=== PATIENT | female | born 1945 | race Caucasian/White ===

== ENCOUNTER 2017-09-29 05:44 | Inpatient (IN) | payer OTHER ==
[2017-09-29] VITALS (11 sets, daily range): BP systolic 123–166; BP diastolic 48–93
[~2017-09-29] VITALS: Ht 167.6 cm; Wt 81.6 kg
[2017-09-29] MEDS ORDERED: VANCOMYCIN 1 GM VIAL ONE (10:00)
[2017-09-29] MEDS ORDERED: BACITRACIN 50000 UNITS/VIAL ONE (10:00)
[2017-09-29] MEDS ORDERED: ACETAMINOPHEN 325 MG TABLET PO PRN ×3 (10:30→14:00)
[2017-09-29] MEDS ORDERED: HYDROCODONE/APAP 5/325MG 1 EACH TABLET PO PRN ×2 (10:30→14:00)
[2017-09-29] MEDS ORDERED: MAG HYDROX/AL HYDROX/SIMETH 30 ML UDC PO PRN (10:30)
[2017-09-29] MEDS ORDERED: MAGNESIUM HYDROXIDE 30 ML UDC PO PRN (10:30)
[2017-09-29] MEDS ORDERED: MORPHINE SULFATE INJ 2 MG/ML DISP.SYRIN IV PRN (10:30)
[2017-09-29] MEDS ORDERED: ONDANSETRON HCL/PF 4 MG/2 ML VIAL IVP PRN (10:30)
[2017-09-29] MEDS ORDERED: Z GUARD REMEDY 2 OZ OINT TP PRN (10:30)
[2017-09-29] MEDS ORDERED: HYDROCODONE/APAP 10/325MG 1 EA TABLET PO PRN (10:30)
[2017-09-29] MEDS ORDERED: hydrALAZINE HCL IV 20 MG VIAL IV PRN (10:30)
[2017-09-29] MEDS ORDERED: FENTANYL PF 100MCG/2ML AMPUL ONE ×3 (10:30→12:43)
[2017-09-29] MEDS ORDERED: ZOLPIDEM TARTRATE 5 MG TABLET PO PRN (10:30)
[2017-09-29] MEDS ORDERED: MIDAZOLAM HCL 2 MG/2ML VIAL ONE (10:31)
[2017-09-29] MEDS ORDERED: TRANEXAMIC ACID 3,000 MG in SODIUM CHLORIDE IRRIG SOLUTION 70 ML IR ONE (11:00)
[2017-09-29] MEDS ORDERED: FEE PK DOSING 1 MIN EA MC ONE (11:00)
[2017-09-29] MEDS ORDERED: VANCOMYCIN 1 GM in IV D5W 250 ML IV ONE (11:00)
[2017-09-29] MEDS ORDERED: HYDROMORPHONE 1 MG/1 ML DISP.SYRIN ONE ×2 (12:25→12:36)
[2017-09-29] MEDS ORDERED: KETOROLAC TROMETHAMINE INJ 30 MG/ML VIAL ONE (12:55)
[2017-09-29] MEDS ORDERED: HYDROMORPHONE 1 MG/1 ML DISP.SYRIN IV PRN (14:00)
[2017-09-29] MEDS ORDERED: ONDANSETRON HCL/PF 4 MG/2 ML VIAL IV PRN (14:00)
[2017-09-29] MEDS ORDERED: DOCUSATE SODIUM 250 MG CAPSULE PO PRN (14:00)
[2017-09-29] MEDS ORDERED: SENNOSIDES 8.6 MG TABLET PO PRN (14:00)
[2017-09-29] MEDS ORDERED: BISACODYL SUPP (10 MG) 10 MG/SUPP.RECT SUPP.RECT RC PRN (14:00)
[2017-09-29] MEDS: IV LR 1000 ML 1,000 ML IV PRN ×2 (14:24→23:24)
[2017-09-29] MEDS ORDERED: HYDROMORPHONE INJ 0.5 MG/0.5 ML SYRINGE IV PRN (14:30)
[2017-09-29 15:58] LABS: EOSINOPHILS % (AUTO) 0.1 % (0.0-6.0); HEMATOCRIT 30 % (33-45); LYMPHOCYTES # (AUTO) 0.7 /CMM (0.8-4.8); LYMPHOCYTES % (AUTO) 6.6 % (20.0-44.0); MEAN CORPUSCULAR HEMOGLOBIN 26 PG (26.0-33.0); MEAN CORPUSCULAR HGB CONC 33 g/dl (31.0-36.0); MEAN CORPUSCULAR VOLUME 78 fL (82-100); MONOCYTES # (AUTO) 0.6 /CMM (0.1-1.30); MONOCYTES % (AUTO) 5.8 % (2.0-12.0); NEUTROPHILS # (AUTO) 8.9 /CMM (1.8-8.9); NEUTROPHILS % (AUTO) 87.5 % (43.0-81.0); PLATELET COUNT (AUTO) 237 /CMM (150-450); WHITE BLOOD COUNT (AUTO) 10.1 K/uL (4.3-11.0)
[2017-09-29 16:02] LABS: CALCIUM, SERUM 8.3 mg/dL (8.5-10.1); CREATININE 0.9 mg/dL (0.6-1.3); MAGNESIUM 1.7 mg/dL (1.8-2.4); POTASSIUM 3.9 mmol/L (3.5-5.1)
[2017-09-29] MEDS ORDERED: diphenhydrAMINE HCL 25 MG CAPSULE PO PRN (17:00)
[2017-09-29] MEDS ORDERED: ACETAMINOPHEN W/ CODEINE#3 1 EA TABLET PO PRN (17:00)
[2017-09-29] MEDS ORDERED: DEXTROSE 50%-WATER 50 ML DISP.SYRIN IV PRN (17:00)
[2017-09-29] MEDS: BLOOD SUGAR DIAGNOSTIC 1 EACH STRIP IN SCH ×2 (17:26→21:28)
[2017-09-29] MEDS: INSULIN REGULAR, HUMAN 100 UNIT/ML 3 ML VIAL SQ PRN ×2 (17:27→21:29)
[2017-09-29] MEDS: HYDROCODONE/APAP 5/325MG 1 EACH TABLET PO PRN (18:53)
[2017-09-29] MEDS: PANTOPRAZOLE 40 MG TABLET.DR PO SCH (22:16)
[2017-09-29] MEDS: VANCOMYCIN 1 GM in IV NS 0.9% 250 ML IV SCH (23:24)
[2017-09-30 04:00] VITALS: BP 125/57
[2017-09-30] MEDS: HYDROMORPHONE INJ 0.5 MG/0.5 ML SYRINGE IV PRN ×2 (04:29→12:21)
[2017-09-30 05:00] VITALS: BP 125/57
[2017-09-30 06:46] LABS: BASOPHILS % (AUTO) 0.4 % (0.0-2.0); EOSINOPHILS # (AUTO) 0.1 /CMM (0.0-0.7); EOSINOPHILS % (AUTO) 1.9 % (0.0-6.0); HEMATOCRIT 26 % (33-45); HEMOGLOBIN 8.8 g/dL (11.5-14.8); LYMPHOCYTES # (AUTO) 0.8 /CMM (0.8-4.8); LYMPHOCYTES % (AUTO) 14.2 % (20.0-44.0); MEAN CORPUSCULAR HEMOGLOBIN 26 PG (26.0-33.0); MEAN CORPUSCULAR HGB CONC 34 g/dl (31.0-36.0); MEAN CORPUSCULAR VOLUME 78 fL (82-100); MONOCYTES # (AUTO) 0.6 /CMM (0.1-1.30); MONOCYTES % (AUTO) 10.6 % (2.0-12.0); NEUTROPHILS # (AUTO) 3.9 /CMM (1.8-8.9); NEUTROPHILS % (AUTO) 72.9 % (43.0-81.0); PLATELET COUNT (AUTO) 153 /CMM (150-450); RDW COEFFICIENT OF VARIATION 16.8 (11.5-15.0); RED BLOOD CELL COUNT(AUTO) 3.37 MIL/uL (4.0-5.2); WHITE BLOOD COUNT (AUTO) 5.4 K/uL (4.3-11.0)
[2017-09-30 07:13] LABS: CALCIUM, SERUM 8.4 mg/dL (8.5-10.1); CREATININE 0.9 mg/dL (0.6-1.3); MAGNESIUM 1.9 mg/dL (1.8-2.4); PHOSPHORUS 3.5 mg/dL (2.5-4.9); POTASSIUM 4.3 mmol/L (3.5-5.1)
[2017-09-30] MEDS: BLOOD SUGAR DIAGNOSTIC 1 EACH STRIP IN SCH ×4 (07:30→21:59)
[2017-09-30 08:00] VITALS: BP 123/41
[2017-09-30] MEDS ORDERED: ENOXAPARIN SODIUM 40 MG/0.4 ML DISP.SYRIN SQ SCH (09:00)
[2017-09-30] MEDS: RIVAROXABAN 10 MG TABLET PO SCH (09:11)
[2017-09-30] MEDS: INSULIN REGULAR, HUMAN 100 UNIT/ML 3 ML VIAL SQ PRN ×3 (09:12→22:10)
[2017-09-30] MEDS: VANCOMYCIN 1 GM in IV NS 0.9% 250 ML IV SCH (12:20)
[2017-09-30 13:00] VITALS: BP 125/74
[2017-09-30 16:00] VITALS: BP 124/55
[2017-09-30] MEDS: MORPHINE SULFATE INJ 4 MG/ML DISP.SYRIN IM PRN ×2 (17:05→20:27)
[2017-09-30 21:45] VITALS: BP 117/53
[2017-09-30] MEDS: PANTOPRAZOLE 40 MG TABLET.DR PO SCH (21:59)
[2017-09-30] MEDS: IV LR 1000 ML 1,000 ML IV PRN (22:13)
[2017-10-01] MEDS: BLOOD SUGAR DIAGNOSTIC 1 EACH STRIP IN SCH ×4 (05:43→22:02)
[2017-10-01] MEDS: INSULIN REGULAR, HUMAN 100 UNIT/ML 3 ML VIAL SQ PRN ×4 (05:45→22:10)
[2017-10-01 06:35] LABS: CALCIUM, SERUM 8.3 mg/dL (8.5-10.1); CREATININE 0.8 mg/dL (0.6-1.3); HEMOGLOBIN 8.6 g/dL (11.5-14.8); POTASSIUM 3.9 mmol/L (3.5-5.1)
[2017-10-01] MEDS: HYDROCODONE/APAP 5/325MG 1 EACH TABLET PO PRN ×3 (07:50→23:17)
[2017-10-01 08:00] VITALS: BP 126/92
[2017-10-01] MEDS: RIVAROXABAN 10 MG TABLET PO SCH (08:13)
[2017-10-01] MEDS: VANCOMYCIN 1 GM in IV NS 0.9% 250 ML IV SCH ×4 (11:51→23:16)
[2017-10-01 16:00] VITALS: BP 134/58
[2017-10-01 20:00] VITALS: BP 121/63
[2017-10-01] MEDS: PANTOPRAZOLE 40 MG TABLET.DR PO SCH (22:02)
[2017-10-01] MEDS: ZOLPIDEM TARTRATE 5 MG TABLET PO PRN (22:02)
[2017-10-01] MEDS: IV LR 1000 ML 1,000 ML IV PRN (22:47)
[2017-10-02] MEDS ORDERED: VANCOMYCIN 0.75 GM in IV D5W 250 ML IV SCH ×2
[2017-10-02] MEDS: MORPHINE SULFATE INJ 4 MG/ML DISP.SYRIN IM PRN ×4 (01:04→20:38)
[2017-10-02] MEDS: BLOOD SUGAR DIAGNOSTIC 1 EACH STRIP IN SCH ×4 (06:40→21:20)
[2017-10-02] MEDS: INSULIN REGULAR, HUMAN 100 UNIT/ML 3 ML VIAL SQ PRN ×4 (06:46→21:24)
[2017-10-02 07:14] LABS: CALCIUM, SERUM 8.2 mg/dL (8.5-10.1); CREATININE 0.8 mg/dL (0.6-1.3); POTASSIUM 3.7 mmol/L (3.5-5.1)
[2017-10-02] MEDS: RIVAROXABAN 10 MG TABLET PO SCH (08:47)
[2017-10-02] MEDS: IV LR 1000 ML 1,000 ML IV PRN (09:59)
[2017-10-02] MEDS: VANCOMYCIN 1 GM in IV NS 0.9% 250 ML IV SCH (12:11)
[2017-10-02] MEDS ORDERED: FUROSEMIDE 20 MG/2 ML VIAL IV ONE (13:30)
[2017-10-02] MEDS ORDERED: ALBUTEROL FS 2.5 MG/3 ML VIAL.NEB NEB PRN (13:30)
[2017-10-02 16:00] VITALS: BP 129/60
[2017-10-02 20:00] VITALS: BP 140/68
[2017-10-02] MEDS: PANTOPRAZOLE 40 MG TABLET.DR PO SCH (21:20)
[2017-10-03] MEDS: VANCOMYCIN 1 GM in IV NS 0.9% 250 ML IV SCH ×2 (00:15→12:07)
[2017-10-03] MEDS: ZOLPIDEM TARTRATE 5 MG TABLET PO PRN (01:17)
[2017-10-03 06:52] LABS: BASOPHILS % (AUTO) 0.3 % (0.0-2.0); EOSINOPHILS # (AUTO) 0.3 /CMM (0.0-0.7); EOSINOPHILS % (AUTO) 4.2 % (0.0-6.0); HEMATOCRIT 23 % (33-45); HEMOGLOBIN 7.8 g/dL (11.5-14.8); LYMPHOCYTES # (AUTO) 1.2 /CMM (0.8-4.8); LYMPHOCYTES % (AUTO) 20.4 % (20.0-44.0); MEAN CORPUSCULAR HEMOGLOBIN 27 PG (26.0-33.0); MEAN CORPUSCULAR HGB CONC 34 g/dl (31.0-36.0); MEAN CORPUSCULAR VOLUME 79 fL (82-100); MONOCYTES # (AUTO) 0.6 /CMM (0.1-1.30); MONOCYTES % (AUTO) 9.7 % (2.0-12.0); NEUTROPHILS # (AUTO) 3.9 /CMM (1.8-8.9); NEUTROPHILS % (AUTO) 65.4 % (43.0-81.0); PLATELET COUNT (AUTO) 228 /CMM (150-450); RDW COEFFICIENT OF VARIATION 16.2 (11.5-15.0); RED BLOOD CELL COUNT(AUTO) 2.93 MIL/uL (4.0-5.2)
[2017-10-03 06:55] LABS: CALCIUM, SERUM 8.5 mg/dL (8.5-10.1); CREATININE 0.8 mg/dL (0.6-1.3); MAGNESIUM 1.7 mg/dL (1.8-2.4); POTASSIUM 3.6 mmol/L (3.5-5.1)
[2017-10-03 06:59] LABS: THYROID STIMULATING HORMONE 0.74 uIU/mL (0.358-3.74)
[2017-10-03] MEDS: BLOOD SUGAR DIAGNOSTIC 1 EACH STRIP IN SCH ×4 (07:30→22:10)
[2017-10-03 08:00] VITALS: BP 133/85
[2017-10-03] MEDS: RIVAROXABAN 10 MG TABLET PO SCH (09:01)
[2017-10-03] MEDS: Magnesium 1GM/D5W 100ML PREMIX 100 ML IV SCH ×2 (12:10→13:28)
[2017-10-03] MEDS: INSULIN REGULAR, HUMAN 100 UNIT/ML 3 ML VIAL SQ PRN ×3 (12:59→22:12)
[2017-10-03 16:00] VITALS: BP 132/65
[2017-10-03 20:00] VITALS: BP 125/86
[2017-10-03] MEDS: PANTOPRAZOLE 40 MG TABLET.DR PO SCH (22:10)
[2017-10-04] MEDS: VANCOMYCIN 1 GM in IV NS 0.9% 250 ML IV SCH ×2 (00:33→12:11)
[2017-10-04] MEDS: HYDROCODONE/APAP 5/325MG 1 EACH TABLET PO PRN (00:34)
[2017-10-04] MEDS: ZOLPIDEM TARTRATE 5 MG TABLET PO PRN (00:34)
[2017-10-04] MEDS: BLOOD SUGAR DIAGNOSTIC 1 EACH STRIP IN SCH ×4 (06:53→21:28)
[2017-10-04] MEDS: INSULIN REGULAR, HUMAN 100 UNIT/ML 3 ML VIAL SQ PRN ×4 (06:55→22:02)
[2017-10-04 07:49] LABS: BASOPHILS % (AUTO) 0.4 % (0.0-2.0); EOSINOPHILS # (AUTO) 0.2 /CMM (0.0-0.7); HEMATOCRIT 24 % (33-45); HEMOGLOBIN 8.2 g/dL (11.5-14.8); LYMPHOCYTES # (AUTO) 1.1 /CMM (0.8-4.8); LYMPHOCYTES % (AUTO) 22.7 % (20.0-44.0); MEAN CORPUSCULAR HEMOGLOBIN 26 PG (26.0-33.0); MEAN CORPUSCULAR HGB CONC 34 g/dl (31.0-36.0); MEAN CORPUSCULAR VOLUME 78 fL (82-100); MONOCYTES # (AUTO) 0.4 /CMM (0.1-1.30); MONOCYTES % (AUTO) 8.2 % (2.0-12.0); NEUTROPHILS # (AUTO) 3.1 /CMM (1.8-8.9); NEUTROPHILS % (AUTO) 63.7 % (43.0-81.0); PLATELET COUNT (AUTO) 280 /CMM (150-450); RDW COEFFICIENT OF VARIATION 16.7 (11.5-15.0); RED BLOOD CELL COUNT(AUTO) 3.11 MIL/uL (4.0-5.2); WHITE BLOOD COUNT (AUTO) 4.8 K/uL (4.3-11.0)
[2017-10-04 08:01] LABS: CALCIUM, SERUM 8.9 mg/dL (8.5-10.1); CREATININE 0.8 mg/dL (0.6-1.3); PHOSPHORUS 3.2 mg/dL (2.5-4.9); POTASSIUM 3.8 mmol/L (3.5-5.1)
[2017-10-04] MEDS: RIVAROXABAN 10 MG TABLET PO SCH (09:06)
[2017-10-04 09:12] VITALS: BP 146/73
[2017-10-04] MEDS: MORPHINE SULFATE INJ 4 MG/ML DISP.SYRIN IM PRN (11:18)
[2017-10-04 16:54] VITALS: BP 146/73
[2017-10-04 20:00] VITALS: BP 148/84
[2017-10-04] MEDS: PANTOPRAZOLE 40 MG TABLET.DR PO SCH (21:28)
[2017-10-05] MEDS: VANCOMYCIN 1 GM in IV NS 0.9% 250 ML IV SCH ×2 (00:08→12:32)
[2017-10-05] MEDS: ZOLPIDEM TARTRATE 5 MG TABLET PO PRN (02:16)
[2017-10-05] MEDS: BLOOD SUGAR DIAGNOSTIC 1 EACH STRIP IN SCH ×3 (05:53→17:38)
[2017-10-05] MEDS: INSULIN REGULAR, HUMAN 100 UNIT/ML 3 ML VIAL SQ PRN ×3 (05:57→17:45)
[2017-10-05 06:59] LABS: BASOPHILS % (AUTO) 0.5 % (0.0-2.0); EOSINOPHILS # (AUTO) 0.3 /CMM (0.0-0.7); HEMATOCRIT 25 % (33-45); HEMOGLOBIN 8.4 g/dL (11.5-14.8); LYMPHOCYTES # (AUTO) 1.1 /CMM (0.8-4.8); LYMPHOCYTES % (AUTO) 20.7 % (20.0-44.0); MEAN CORPUSCULAR HEMOGLOBIN 26 PG (26.0-33.0); MEAN CORPUSCULAR HGB CONC 34 g/dl (31.0-36.0); MEAN CORPUSCULAR VOLUME 78 fL (82-100); MONOCYTES # (AUTO) 0.4 /CMM (0.1-1.30); NEUTROPHILS # (AUTO) 3.4 /CMM (1.8-8.9); NEUTROPHILS % (AUTO) 65.8 % (43.0-81.0); PLATELET COUNT (AUTO) 315 /CMM (150-450); WHITE BLOOD COUNT (AUTO) 5.1 K/uL (4.3-11.0)
[2017-10-05 07:26] LABS: CALCIUM, SERUM 8.8 mg/dL (8.5-10.1); CREATININE 0.9 mg/dL (0.6-1.3); MAGNESIUM 1.9 mg/dL (1.8-2.4); PHOSPHORUS 3.5 mg/dL (2.5-4.9)
[2017-10-05 08:00] VITALS: BP 160/83
[2017-10-05] MEDS: RIVAROXABAN 10 MG TABLET PO SCH (09:56)
[2017-10-05] MEDS: MORPHINE SULFATE INJ 4 MG/ML DISP.SYRIN IM PRN (10:29)
[2017-10-05] MEDS: HYDROCODONE/APAP 5/325MG 1 EACH TABLET PO PRN (13:50)
[2017-10-05 16:00] VITALS: BP 139/69
[2017-10-05] MEDS ORDERED: VANCOMYCIN 1 GM in IV NS 0.9% 250 ML IV SCH (18:00)
== END 2017-10-05 18:33 | DRG 465 ==
LOC: DS 05:44 → MEDSG1 05:46 → MED 09-30 22:24
PROVIDERS: ADMIT Specialist; ATTEND Specialist
DX: T84.51XA Infection and inflammatory reaction due to internal right hip prosthesis, initial encounter (principal); E11.9 Type 2 diabetes mellitus without complications; D63.8 Anemia in other chronic diseases classified elsewhere; E66.9 Obesity, unspecified; D50.9 Iron deficiency anemia, unspecified; E78.5 Hyperlipidemia, unspecified; I10 Essential (primary) hypertension; Y83.1 Surgical operation with implant of artificial internal device as the cause of abnormal reaction of the patient, or of later complication, without mention of misadventure at the time of the procedure; I25.10 Atherosclerotic heart disease of native coronary artery without angina pectoris; K21.9 Gastro-esophageal reflux disease without esophagitis; Y92.009 Unspecified place in unspecified non-institutional (private) residence as the place of occurrence of the external cause; Z68.29 Body mass index [BMI] 29.0-29.9, adult; Z88.0 Allergy status to penicillin
CPT/HCPCS: 36415; 71045-TC; 80048-TC; 80202-TC; 82746; 82947-TC; 82962-TC; 83540-TC; 83735-TC; 84100-TC; 84443-TC; 85025-TC; 85027-TC; 86850-TC; 86921-TC; 87070-TC; 87081-TC; 87186-TC; 88300-TC; 88302-TC; 88305-TC; 94799-TC; 97110-TC; 97116-TC; 97530-TC; A4217; A4606; A6209; A6253; A6402; C1713; J0360; J1170; J1815; J1885; J1940; J2250; J2270; J2405; J3010; J3370; J3475; J7042; J7050; J7060; J7120; Z7610

== ENCOUNTER 2018-02-16 05:15 | Inpatient (IN) | payer OTHER ==
[~2018-02-16] VITALS: Ht 162.6 cm; Wt 79.4 kg
[2018-02-16 05:30] VITALS: BP 156/88
[2018-02-16] MEDS ORDERED: oxyCODONE HCL SR 10MG TAB.SR.12H PO ONE (06:08)
[2018-02-16] MEDS ORDERED: CELECOXIB 100 MG CAPSULE PO ONE (06:30)
[2018-02-16] MEDS ORDERED: ACETAMINOPHEN 325 MG TABLET PO ONE (06:30)
--- NOTE | 2018-02-16 07:00 | NUR ---
PT LEFT UNIT FOR R HIP SURGERY. PT A/O X4. NO S/S OF RESPIRATORY DISTRESS NOTED, VS ARE STABLE.
--- NOTE | 2018-02-16 07:05 | NUR ---
MSANNEL NOTES. RECEIVED ENDORSEMENT FROM NIGHT NURSE AND PT SEEN LEAVING GALVIN FOR SURG.
[2018-02-16] MEDS ORDERED: BACITRACIN 50000 UNITS/VIAL ONE (07:24)
--- NOTE | 2018-02-16 07:45 | NUR ---
MSRN NOTES. BLOOD BANK CALLED REQUESTING PACKED CELL ORDERS TO BE PLACED. ORDERS PLACED AND CONFIRMED CORRECT WITH BLOOD BANK.
[2018-02-16] MEDS ORDERED: HYDROMORPHONE INJ 2 MG/ML DISP.SYRIN ONE ×2 (07:50→09:50)
[2018-02-16] MEDS ORDERED: ROCURONIUM BROMIDE 50 MG/5 ML ONE (07:50)
[2018-02-16] MEDS ORDERED: CLINDAMYCIN 900 MG/6 ML VIAL ONE (07:50)
[2018-02-16] MEDS ORDERED: TRANEXAMIC ACID 3,000 MG in SODIUM CHLORIDE IRRIG SOLUTION 70 ML IR ONE (08:00)
[2018-02-16] MEDS ORDERED: ONDANSETRON HCL/PF 4 MG/2 ML VIAL ONE (09:57)
[2018-02-16] MEDS ORDERED: IBUP-1957 PO (10:04)
[2018-02-16] MEDS ORDERED: IBUP-1953 PO (10:06)
[2018-02-16] MEDS ORDERED: TYLENOL 650 MG TABLET PO PRN (11:00)
[2018-02-16] MEDS ORDERED: SENOKOT 8.6 MG TABLET PO PRN (11:00)
[2018-02-16] MEDS ORDERED: DULCOLAX 10 MG/SUPP.RECT RC PRN (11:00)
[2018-02-16] MEDS ORDERED: ZOFRAN 4mg/2ML IV PRN (11:00)
[2018-02-16] MEDS ORDERED: COLACE 250 MG CAPSULE PO PRN (11:00)
[2018-02-16] MEDS ORDERED: HYDROCODONE/APAP 5/325MG 1 EACH TABLET PO PRN ×2 (11:00)
[2018-02-16] MEDS ORDERED: HYDROMORPHONE INJ 2 MG/ML DISP.SYRIN IV PRN (11:30)
--- NOTE | 2018-02-16 11:45 | NUR ---
MSRN NOTES. PT RETURNED FROM [place], PT WITH O2 VIA NC AT 2LPM, PT WITHOUT RESP DISTRESS PAIN OR DISCOMFORT. PT VITALS WNL. CHART REVIEWED AND ORDERS PLACED. PT RESTING WITHOUT CONCERN OR COMPLAINT. [place] NURSE TO INFORM PT FAMILY TO COME UP. WILL CONTINUE POC.
[2018-02-16] MEDS ORDERED: LEVOFLOXACIN 500 MG /D5W 100ML 500 MG in PREMIX 1 EA IV ONE (12:00)
[2018-02-16] MEDS: IV LR 1000 ML 1,000 ML IV PRN (12:17)
[2018-02-16] MEDS: CLINDAMYCIN 600 MG in IV D5W 50 ML IV SCH ×2 (14:49→21:03)
[2018-02-16 16:00] VITALS: BP 133/69
[2018-02-16] MEDS ORDERED: ONDANSETRON HCL/PF 4 MG/2 ML VIAL IVP PRN (18:00)
[2018-02-16] MEDS ORDERED: MAG HYDROX/AL HYDROX/SIMETH 30 ML UDC PO PRN (18:00)
[2018-02-16] MEDS ORDERED: ACETAMINOPHEN 325 MG TABLET PO PRN (18:00)
[2018-02-16] MEDS ORDERED: Z GUARD REMEDY 2 OZ OINT TP PRN (18:00)
[2018-02-16] MEDS ORDERED: MORPHINE SULFATE INJ 2 MG/ML DISP.SYRIN IM PRN (18:00)
[2018-02-16] MEDS ORDERED: diphenhydrAMINE HCL 25 MG CAPSULE PO PRN (18:00)
[2018-02-16] MEDS ORDERED: MAGNESIUM HYDROXIDE 30 ML UDC PO PRN ×2 (18:00→18:30)
--- NOTE | 2018-02-16 18:23 | NUR ---
MSRN CLOSING NOTES. PT A&0X3 TOLERATING ROOM AIR WITH DISTRESS. PT REPORTING MINOR/MODERATE PAIN BUT DECLINES ANALGESIA. PT WITH IVC AT L WRIST INTACT AND OPERATIONAL. PT WITH SCD'S INSITU. TRAPEZE ORDERED WITH PT. PT BED IN LOWEST LOCKED POSITION WITH HANDRAILSX2, AND CALL GRESHAM WITHIN REACH. ALL DAY NURSE DUTIES ATTENDED TO AND PT SI WITHOUT CONCERN OR COMPLAINT AT THIS TIME. WILL ENDORSE TO NIGHT NURSE AT BEDSIDE FOR BOBBY.
--- NOTE | 2018-02-16 19:27 | NUR ---
MS/RN OPENING NOTES PT RECEIVED A/OX3, HOB ELEVATED. ON ROOM AIR, BREATHING EVEN AND UNLABORED. DENIES SOB, C/O 12/09 RIGHT HIP PAIN BUT REFUSING PAIN MEDICATION AT THIS TIME. EDUCATED PT REGARDING PAIN MANAGEMENT AND VERBALIZED UNDERSTANDING. STILL REFUSING AT THIS TIME. IV TO LEFT WRIST PATENT AND INTACT RUNNING IVF ORDERED. ALLISON IN PLACE AND DRAINING TO GRAVITY. RIGHT HIP DRESSING C/D/I WITH ICE PACK. ABDUCTOR IN PLACE. BED IN LOW/LOCKED POSITION WITH CALL LIGHT IN REACH. SIDE RAILS UPX2. WILL CONTINUE TO MONITOR
[2018-02-16 20:00] VITALS: BP 107/61
[2018-02-16] MEDS: PANTOPRAZOLE 40 MG TABLET.DR PO SCH (21:03)
--- NOTE | 2018-02-16 21:16 | NUR ---
MS/RN NOTES PT REFUSED SCHEDULED PROTONIX. EDUCATION PROVIDED REGARDING RISKS/BENEFITS, PT STILL REFUSING. RETURNED MED IN [facility]
[2018-02-16] MEDS ORDERED: AMBIEN 5 MG TABLET PO PRN (22:00)
[2018-02-17] MEDS: IV LR 1000 ML 1,000 ML IV PRN ×2 (01:07→16:33)
[2018-02-17] MEDS: CLINDAMYCIN 600 MG in IV D5W 50 ML IV SCH (02:03)
[2018-02-17 06:34] LABS: BASOPHILS % (AUTO) 0.1 % (0.0-2.0); EOSINOPHILS % (AUTO) 0.4 % (0.0-6.0); HEMATOCRIT 30 % (33-45); HEMOGLOBIN 9.9 g/dL (11.5-14.8); LYMPHOCYTES # (AUTO) 1.3 /CMM (0.8-4.8); LYMPHOCYTES % (AUTO) 20.3 % (20.0-44.0); MEAN CORPUSCULAR HEMOGLOBIN 28 PG (26.0-33.0); MEAN CORPUSCULAR HGB CONC 33 g/dl (31.0-36.0); MEAN CORPUSCULAR VOLUME 84 fL (82-100); MONOCYTES # (AUTO) 0.6 /CMM (0.1-1.30); MONOCYTES % (AUTO) 9.4 % (2.0-12.0); NEUTROPHILS # (AUTO) 4.5 /CMM (1.8-8.9); NEUTROPHILS % (AUTO) 69.8 % (43.0-81.0); PLATELET COUNT (AUTO) 194 /CMM (150-450); RDW COEFFICIENT OF VARIATION 15.9 (11.5-15.0); RED BLOOD CELL COUNT(AUTO) 3.55 MIL/uL (4.0-5.2); WHITE BLOOD COUNT (AUTO) 6.5 K/uL (4.3-11.0)
[2018-02-17 06:41] LABS: CALCIUM, SERUM 8.4 mg/dL (8.5-10.1); CARBON DIOXIDE 27 mmol/L (21-32); CHLORIDE 104 mmol/L (98-107); GLUCOSE 163 mg/dL (74-106); MAGNESIUM 1.8 mg/dL (1.8-2.4); PHOSPHORUS 3.5 mg/dL (2.5-4.9); POTASSIUM 4.1 mmol/L (3.5-5.1); SODIUM SERUM 138 mmol/L (136-145); UREA NITROGEN, BLOOD 19 mg/dL (7-18)
[2018-02-17 06:47] LABS: CHOLESTEROL 218 mg/dL (<200); HDL CHOLESTEROL 49 mg/dL (40-60); LDL 141 mg/dL (0-99); TRIGLYCERIDES 139 mg/dL (30-150)
--- NOTE | 2018-02-17 07:29 | NUR ---
MSRN OPENING NOTES. PT A&0X3 TOLERATING ROOM AIR WITHOUT DISTRESS. PT REPORTS CURRENT PAIN MANAGEMENT ADEQUATE. PT WITH IVC AT L WRIST INTACT AND OPERATIONAL. PT DRESSING INTACT AND NAD. PT WITH SCD'S INSITU. PT REPOSITIONED, Z GUARD APPLIED TO BACK OF LEGS AND BUTTOCKS. PT BED IN LOWEST LOCKED POSITION WITH HANDRAILSX2, AND CALL GRESHAM WITHIN REACH. PT BRIEFED ON TODAY'S POC AND IS WITHOUT CONCERN OR COMPLAINT AT THIS TIME.
--- NOTE | 2018-02-17 07:33 | NUR ---
MS/RN CLOSING NOTES PT AWAKE, RESTING COMFORTABLY IN BED. REMAINS ON ROOM AIR, BREATHING EVEN AND UNLABORED. DENIES SOB, PAIN AT A TOLERATED LEVEL AT THIS TIME. DOES NOT WANT PAIN MEDICATION. IV TO LEFT WRIST PATENT AND INTACT RUNNING IVF ORDERED. RIGHT HIP DRESSING C/D/I WITH ICE PACK. TURNED/REPOSITIONED Q2H, AND TOLERATED. ENCOURAGED PT TO USE INCENTIVE SPIROMETER WHILE AWAKE THROUGHOUT SHIFT. ALLISON IN PLACE AND DRAINING TO GRAVITY. PER PATIENT, POSITIVE FLATUS, NO BM. NO SIGNIFICANT CHANGES OVERNIGHT. ALL NEEDS MET. BED REMAINS IN LOW/LOCKED POSITION WITH CALL LIGHT IN REACH. SIDE RAILS UPX3. ENDORSED TO DAY SHIFT ANNEL BOBBY. Addendum: 02/17/18 at 0736 by VIJI CORONADO RN AWAITING PT MIRNA AND CHRISTOPHER
[2018-02-17] MEDS: RIVAROXABAN 10 MG TABLET PO SCH (08:53)
[2018-02-17] MEDS: DOCUSATE SODIUM 100 MG CAPSULE PO SCH ×2 (08:53→16:23)
[2018-02-17] MEDS: HYDROCODONE/APAP 5/325MG 1 EACH TABLET PO PRN ×2 (09:20→22:34)
[2018-02-17 16:00] VITALS: BP 130/61
--- NOTE | 2018-02-17 17:00 | NUR ---
MSRN NOTES. ALLISON D/C. BEDPAN AND CALL GRESHAM WITHIN REACH.
--- NOTE | 2018-02-17 18:25 | NUR ---
MSRN CLOSING NOTES. PT TOLERATING ROOM AIR WITHOUT DISTRESS, REPORTS MINOR PAIN AND DECLINED ANALGESIA MUTLTIPLE TIMES. PT WITH IVC AT L WRIST INTACT AND OPERATIONAL. PT DRESSING INTACT AND NAD. PT REFUSED SCD'S. PT REPOSITIONED Q2HR OR SOONER, Z GUARD TO LEGS AND BUTTOCKS. PT BED IN LOWEST LOCKED POSITION WITH HANDRAILSX2, AND CALL GRESHAM WITHIN REACH. ALL DAY NURSE DUTIES ATTENDED TO AND PT IS WITHOUT CONCERN OR COMPLAINT, WILL ENDORSE TO NIGHT NURSE AT BEDSIDE FOR BOBBY.
--- NOTE | 2018-02-17 19:40 | NUR ---
MS RN OPENING NOTE RECEIVE PATIENT AWAKE IN BED, A/O X3, STABLE NO FACIAL GRIMACING NOTED FOR PAIN. NO SOB OR DISTRESS NOTED, CALL LIGHT WITHIN REACH. SAFETY MEASURES IMPLEMENTED. WILL CONTINUE TO MONITOR THROUGHOUT SHIFT.
[2018-02-17 20:00] VITALS: BP 113/59
[2018-02-17] MEDS: PANTOPRAZOLE 40 MG TABLET.DR PO SCH (22:31)
[2018-02-18] MEDS: IV LR 1000 ML 1,000 ML IV PRN ×3 (02:16→21:38)
[2018-02-18 06:11] LABS: BASOPHILS % (AUTO) 0.4 % (0.0-2.0); EOSINOPHILS % (AUTO) 2.4 % (0.0-6.0); HEMATOCRIT 28 % (33-45); HEMOGLOBIN 9.4 g/dL (11.5-14.8); LYMPHOCYTES # (AUTO) 1.2 /CMM (0.8-4.8); LYMPHOCYTES % (AUTO) 21.4 % (20.0-44.0); MEAN CORPUSCULAR HEMOGLOBIN 28 PG (26.0-33.0); MEAN CORPUSCULAR HGB CONC 33 g/dl (31.0-36.0); MEAN CORPUSCULAR VOLUME 83 fL (82-100); MONOCYTES # (AUTO) 0.5 /CMM (0.1-1.30); MONOCYTES % (AUTO) 9.3 % (2.0-12.0); NEUTROPHILS # (AUTO) 3.7 /CMM (1.8-8.9); NEUTROPHILS % (AUTO) 66.5 % (43.0-81.0); PLATELET COUNT (AUTO) 166 /CMM (150-450); RED BLOOD CELL COUNT(AUTO) 3.41 MIL/uL (4.0-5.2); WHITE BLOOD COUNT (AUTO) 5.6 K/uL (4.3-11.0)
--- NOTE | 2018-02-18 06:19 | NUR ---
MS RN CLOSING NOTES PT COMFORTABLY ASLEEP AND EASILY AWAKEN, A/O X 3, ASSISTED REPOSITION EVERY 2 HOURS, TOLERATING ROOM AIR 98% STABLE CONDITION. RESPIRATION EVEN AND UNLABORED. KEPT CLEAN AND DRY AND COMFORTABLE, ALL NURSING CARE RENDERED. NEEDS ATTENDED AND ANTICIPATED, GOOD SKIN CARE PROVIDED. ON LOW BED AT ALL TIMES TO ENSURE SAFETY. SAFE HAZARD FREE ENVIRONMENT PROVIDED. NO COMPLAINS OF PAIN. CALL LIGHT WITHIN EASY TO REACH. WILL ENDORSE NEXT SHIFT CONTINUITY OF CARE. Addendum: 02/18/18 at 0639 by RISA WYNN RN R HIP DRESSING INTACT C/D/I NO S/S BLEEDING
[2018-02-18 06:44] LABS: CALCIUM, SERUM 8.2 mg/dL (8.5-10.1); CARBON DIOXIDE 29 mmol/L (21-32); CHLORIDE 104 mmol/L (98-107); CREATININE 0.8 mg/dL (0.6-1.3); GLUCOSE 163 mg/dL (74-106); MAGNESIUM 1.7 mg/dL (1.8-2.4); PHOSPHORUS 2.8 mg/dL (2.5-4.9); POTASSIUM 3.6 mmol/L (3.5-5.1); SODIUM SERUM 139 mmol/L (136-145); UREA NITROGEN, BLOOD 15 mg/dL (7-18)
--- NOTE | 2018-02-18 07:41 | NUR ---
MS RN OPENING NOTES RECEIVED PT FROM NIGHTSHIFT NURSE IN STABLE CONDITION. PT IS A/O X3. NO SOB OR ACUTE SIGNS OF DISTRESS NOTED. BREATHING IS EVEN AND UNLABORED. PT ON RA AND SATING WELL. SHE DENIES ANY PAIN AT THIS TIME. SURGICAL DRESSING TO RIGHT HIP NOTED TO BE CLEAN, DRY, AND INTACT. IV TO LEFT WRIST NOTED TO BE PATENT AND INTACT. NO REDNESS OR SIGNS OF INFILTRATION NOTED. PT TOLERATING LR INFUSION WELL. BED IN LOW LOCKED POSITION, SIDE RAILS UP X2, CALL LIGHT WITHIN REACH. WILL CONTINUE TO MONITOR
[2018-02-18 08:00] VITALS: BP 117/59
[2018-02-18] MEDS: DOCUSATE SODIUM 100 MG CAPSULE PO SCH ×2 (08:34→16:52)
[2018-02-18] MEDS ORDERED: MAGNESIUM OXIDE 400 MG TABLET PO ONE (10:00)
[2018-02-18 16:00] VITALS: BP 135/70
[2018-02-18] MEDS: RIVAROXABAN 10 MG TABLET PO SCH (16:52)
--- NOTE | 2018-02-18 18:47 | NUR ---
MS RN CLOSING NOTES PT REMAINS IN STABLE CONDITION. ALL NEEDS MET DURING SHIFT AND ORDERS CARRIED OUT ACCORDINGLY. ALL DUE MEDS GIVEN. WOUND AND SKIN CARE PROVIDED. DRESSING CHANGED RENDERED BY . IV REMAINS PATENT AND INTACT. PT PREFERS TO HAVE FLUID OFF AT THIS TIME. SHE CONTINUES TO DENY PAIN. SAFETY MEASURES REMAIN IN PLACE. WILL ENDORSE TO NIGHTSHIFT NURSE FOR BOBBY
--- NOTE | 2018-02-18 19:00 | NUR ---
MS RN OPENING NOTE RECEIVE PATIENT AWAKE IN BED, A/O X3, TOLERATING ROOM AIR 98% NO FACIAL GRIMACING NOTED FOR PAIN. NO SOB OR DISTRESS NOTED, CALL LIGHT WITHIN REACH. SAFETY MEASURES IMPLEMENTED. WILL CONTINUE TO MONITOR THROUGHOUT SHIFT.
[2018-02-18 20:00] VITALS: BP 109/85
[2018-02-18] MEDS: PANTOPRAZOLE 40 MG TABLET.DR PO SCH (21:38)
--- NOTE | 2018-02-19 06:18 | NUR ---
MS RN CLOSING NOTES PT COMFORTABLY ASLEEP AND EASILY AWAKEN, A/O X 3, TOLERATING ROOM AIR 100% STABLE CONDITION. RESPIRATION EVEN AND UNLABORED. KEPT CLEAN AND DRY AND COMFORTABLE, ALL NURSING CARE RENDERED. NEEDS ATTENDED AND ANTICIPATED, GOOD SKIN CARE PROVIDED. ASSISTED REPOSITION EVERY 2 HOURS, ON LOW BED AT ALL TIMES TO ENSURE SAFETY. SAFE HAZARD FREE ENVIRONMENT PROVIDED. NO COMPLAINS OF PAIN. CALL LIGHT WITHIN EASY TO REACH. WILL ENDORSE NEXT SHIFT CONTINUITY OF CARE.
[2018-02-19 06:47] LABS: BASOPHILS % (AUTO) 0.4 % (0.0-2.0); EOSINOPHILS % (AUTO) 2.9 % (0.0-6.0); HEMATOCRIT 28 % (33-45); HEMOGLOBIN 9.1 g/dL (11.5-14.8); LYMPHOCYTES # (AUTO) 1.3 /CMM (0.8-4.8); LYMPHOCYTES % (AUTO) 21.1 % (20.0-44.0); MEAN CORPUSCULAR HEMOGLOBIN 28 PG (26.0-33.0); MEAN CORPUSCULAR HGB CONC 33 g/dl (31.0-36.0); MEAN CORPUSCULAR VOLUME 83 fL (82-100); MONOCYTES # (AUTO) 0.5 /CMM (0.1-1.30); MONOCYTES % (AUTO) 8.8 % (2.0-12.0); NEUTROPHILS # (AUTO) 4.1 /CMM (1.8-8.9); NEUTROPHILS % (AUTO) 66.8 % (43.0-81.0); PLATELET COUNT (AUTO) 176 /CMM (150-450); RDW COEFFICIENT OF VARIATION 15.6 (11.5-15.0); WHITE BLOOD COUNT (AUTO) 6.1 K/uL (4.3-11.0)
[2018-02-19 07:14] LABS: ALANINE AMINOTRANSFERASE 16 U/L (12-78); ALBUMIN 2.6 g/dL (3.4-5.0); ALKALINE PHOSPHATASE 54 U/L (46-116); ASPARTATE AMINOTRANSFERASE 16 U/L (15-37); BILIRUBIN,TOTAL 0.4 mg/dL (0.2-1.0); CALCIUM, SERUM 8.3 mg/dL (8.5-10.1); CARBON DIOXIDE 28 mmol/L (21-32); CHLORIDE 101 mmol/L (98-107); CREATININE 0.9 mg/dL (0.6-1.3); GLUCOSE 194 mg/dL (74-106); MAGNESIUM 1.6 mg/dL (1.8-2.4); PHOSPHORUS 2.8 mg/dL (2.5-4.9); POTASSIUM 3.4 mmol/L (3.5-5.1); SODIUM SERUM 137 mmol/L (136-145); TOTAL PROTEIN, SERUM 6.5 g/dL (6.4-8.2); UREA NITROGEN, BLOOD 13 mg/dL (7-18)
--- NOTE | 2018-02-19 07:15 | NUR ---
RN NOTES PT IS LAYING DOWN IN BED, SLEEPING COMFORTABLY. PT ON RA, RESPIRATIONS ARE EVEN AND UNLABORED. IV ON L WRIST INTACT AND RUNNING LR @ 100ML/HR. NO SIGNS OF DISTRESS NOTED. SAFETY MEASURES ARE IN PLACE, CALL LIGHT IS IN REACH. WILL CONTINUE TO MONITOR.
--- NOTE | 2018-02-19 07:52 | NUR ---
RN NOTES REPORT WAS GIVEN TO ARNEL FOR BOBBY.
[2018-02-19 08:00] VITALS: BP 142/79
[2018-02-19] MEDS: DOCUSATE SODIUM 100 MG CAPSULE PO SCH ×2 (09:37→17:58)
[2018-02-19] MEDS ORDERED: MAGNESIUM OXIDE 400 MG TABLET PO ONE (10:00)
[2018-02-19] MEDS ORDERED: POTASSIUM CHLORIDE 20 MEQ TAB.PRT.SR PO SCH (10:00)
[2018-02-19] MEDS: RIVAROXABAN 10 MG TABLET PO SCH (18:02)
--- NOTE | 2018-02-19 18:42 | NUR ---
RN NOTE CLOSING: PT IS AWAKE A/O X 3, TOLERATING ROOM AIR 100%. STABLE CONDITION. RESPIRATION EVEN AND UNLABORED. KEPT CLEAN AND DRY AND COMFORTABLE. BED AT LOWEST POSITION AT ALL TIMES TO ENSURE SAFETY. SAFE HAZARD FREE ENVIRONMENT PROVIDED. NO COMPLAINS OF PAIN. CALL LIGHT WITHIN EASY TO REACH. WILL ENDORSE NEXT SHIFT CONTINUITY OF CARE.
--- NOTE | 2018-02-19 18:53 | NUR ---
MS RN OPENING NOTE RECEIVE PATIENT AWAKE IN BED, A/O X3, TOLERATING ROOM AIR 99% NO C/O OF PAIN. NO SOB OR DISTRESS NOTED, CALL LIGHT WITHIN REACH. SAFETY MEASURES IMPLEMENTED. WILL CONTINUE TO MONITOR THROUGHOUT SHIFT.
--- NOTE | 2018-02-19 19:20 | NUR ---
MS RN NOTES REPORT GIVEN TO OTHER RN NURSE CHANGE OF PATIENT
[2018-02-19 20:00] VITALS: BP 132/75
--- NOTE | 2018-02-19 20:00 | NUR ---
MS/RN OPENING NOTES PATIENT IN BED, ABLE TO VERBALIZE NEEDS, REPORTED ABLE TO EAT AND DRINK FLUIDS AND REPORTED AND REQUEST NOT TO HAVE IVF AT THIS TIME. SOME NOTED REDNESS AND WILL REMOVE IV SITE. WILL MONITOR, OBSERVE ABLE TO WALK WITH WALK AND ASK FOR ASSISTANCE, CALM AND COOPERTAIVE TO CARE. SKIN INTACT, WILL MONITOR, BED IN LOCK POSITION, CALL LIGHTS WITHIN REACH.
[2018-02-19] MEDS: PANTOPRAZOLE 40 MG TABLET.DR PO SCH (21:34)
[2018-02-19] MEDS: HYDROCODONE/APAP 5/325MG 1 EACH TABLET PO PRN (23:00)
[2018-02-20] MEDS ORDERED: CEFAZOLIN 0 GM ONE (00:30)
--- NOTE | 2018-02-20 00:30 | NUR ---
MS/RN NOTES CLARRIFICATION OBTAINED WITH CHARGE NURSE FOR ANTIBIOTIC, FOR ANOTHER PATIENT
--- NOTE | 2018-02-20 00:31 | NUR ---
MS/RN NOTES NO ANTIBIOTIC GIVEN, ENTRY ERROR FOR REVERSAL BY ANOTHER RN
--- NOTE | 2018-02-20 06:42 | NUR ---
312-1 MS/RN NOTES PATIENT ABLE TO SLEEP DURING THE NIGHTS, RESTING COMFORTABLY IN BED, PAIN MANAGMENT MONITORING,PROVIDED COOLING MEASURES TO RELIEVE PAIN, PROVIDE FLUIDS, ALERT, ORIENTEDX3, ABLE TO DO SELF CARE WITH SUPERVISION. CALL LIGHTS WITHIN REACH, BED IN LOCK POSITION, WILL MONITOR AND ENDORSE TO AM RN FOR BOBBY.
--- NOTE | 2018-02-20 07:53 | NUR ---
MS RN OPENING NOTE RECEIVED PATIENT IN BED. ALERT ORIENTED X 4, ON ROOM AIR. TOLERATING WELL. IN NO APPARENT DISTRESS OR DISCOMFORT AT THIS TIME. RESPIRATIONS EVEN AND UNLABORED. PATIENT IS ABLE TO VERBALIZE NEEDS FULLY. ABLE TO AMBULATE WITH ASSISTIVE DEVICE. PATIENT IS CONTINENT . KEPT CLEAN AND COMFORTABLE. PAIN CONTROLLED. SAFETY MEASURES IN PLACE, BED IN LOW LOCKED POSITION, SIDE RAILS UP X2, CALL LIGHT WITHIN EASY REACH. WILL CONTINUE TO MONITOR.
[2018-02-20 08:00] VITALS: BP 126/71
[2018-02-20] MEDS: HYDROCODONE/APAP 5/325MG 1 EACH TABLET PO PRN ×2 (08:36→21:56)
[2018-02-20] MEDS: DOCUSATE SODIUM 100 MG CAPSULE PO SCH ×2 (08:36→16:00)
[2018-02-20 15:39] VITALS: BP 118/64
[2018-02-20] MEDS: RIVAROXABAN 10 MG TABLET PO SCH (16:01)
--- NOTE | 2018-02-20 18:14 | NUR ---
MS RN CLOSING NOTE PATIENT IN BED. SLEEPING, EASILY AROUSED WITH VERBAL STIMULI, ORIENTED X4. ON ROOM AIR. TOLERATING WELL. IN NO APPARENT DISTRESS OR DISCOMFORT AT THIS TIME. RESPIRATIONS EVEN AND UNLABORED. PATIENT IS ABLE TO VERBALIZE NEEDS FULLY. ABLE TO AMBULATE WITH ASSISTIVE DEVICE. PATIENT IS CONTINENT. LEFT WRIST IVC 22G. PATENT AND INTACT, FLUIDS RUNNING AT 100 ML/HR. SURGICAL DRESSING CLEAN AND INTACT. KEPT CLEAN AND COMFORTABLE. PAIN CONTROLLED. SAFETY MEASURES IN PLACE, BED IN LOW LOCKED POSITION, SIDE RAILS UP X2, CALL LIGHT WITHIN EASY REACH. WILL ENDORSE TO PM NURSE FOR BOBBY.
--- NOTE | 2018-02-20 19:45 | NUR ---
MS/RN OPENING NOTES PATIENT IN BED, ALERT, ORIENTED X3, ABLE TO VERBALIZE NEEDS AT ALL TIMES, ASSISTED TO BATHROOM WITH WALKER, PARTICIPATED WITH CARE, RESPIRATIONS EVEN AND UNLABORED, NO PAIN REPORTED AND OBSERVED, IV HYDRATION STARTED, PATIENT REQUEST TO GO BACK TO BED AFTER HAD SNACK PROVIDED BY CHRISTIE. CALL LIGHTS WITHIN REACH, BELONGINGS WITHIN REACH. AND WILL MONITOR.., IV ON LEFT HAND W/ NO S/S OF INFILTRATION OR REDNESS.
[2018-02-20 20:00] VITALS: BP 133/71
[2018-02-20] MEDS: PANTOPRAZOLE 40 MG TABLET.DR PO SCH (21:56)
--- NOTE | 2018-02-20 21:56 | NUR ---
ms/rn notes patient reported pain, and rerquested pain medication
--- NOTE | 2018-02-21 00:29 | NUR ---
MS/RN NOTES PATIENT REQUESTED TO HAVE IV FLUIDS HOLD AND TO RESUME IN THE MORNING. PATIETN ABLE TO DRINK FLUIDS AND WOULD LIKE TO SLEEP.
[2018-02-21] MEDS: HYDROCODONE/APAP 5/325MG 1 EACH TABLET PO PRN ×3 (01:50→17:42)
[2018-02-21 06:23] LABS: BASOPHILS % (AUTO) 0.5 % (0.0-2.0); EOSINOPHILS % (AUTO) 5.3 % (0.0-6.0); HEMATOCRIT 27 % (33-45); HEMOGLOBIN 8.9 g/dL (11.5-14.8); LYMPHOCYTES # (AUTO) 1.7 /CMM (0.8-4.8); LYMPHOCYTES % (AUTO) 30.5 % (20.0-44.0); MEAN CORPUSCULAR HEMOGLOBIN 28 PG (26.0-33.0); MEAN CORPUSCULAR HGB CONC 33 g/dl (31.0-36.0); MEAN CORPUSCULAR VOLUME 84 fL (82-100); MONOCYTES # (AUTO) 0.5 /CMM (0.1-1.30); MONOCYTES % (AUTO) 8.6 % (2.0-12.0); NEUTROPHILS # (AUTO) 3.2 /CMM (1.8-8.9); NEUTROPHILS % (AUTO) 55.1 % (43.0-81.0); PLATELET COUNT (AUTO) 241 /CMM (150-450); RDW COEFFICIENT OF VARIATION 16.1 (11.5-15.0); RED BLOOD CELL COUNT(AUTO) 3.21 MIL/uL (4.0-5.2); WHITE BLOOD COUNT (AUTO) 5.7 K/uL (4.3-11.0)
[2018-02-21 06:55] LABS: CALCIUM, SERUM 8.5 mg/dL (8.5-10.1); CARBON DIOXIDE 31 mmol/L (21-32); CHLORIDE 103 mmol/L (98-107); GLUCOSE 181 mg/dL (74-106); MAGNESIUM 1.8 mg/dL (1.8-2.4); PHOSPHORUS 3.9 mg/dL (2.5-4.9); SODIUM SERUM 142 mmol/L (136-145); UREA NITROGEN, BLOOD 22 mg/dL (7-18)
--- NOTE | 2018-02-21 07:07 | NUR ---
312-1 MS/RN NOTES PATIENT ABLE TO SLEEP DURING THE NIGHT, PAIN MONITOR, ON PAIN MANAGEMENT. RESPIRATIONS EVEN AND UNLABORED CALL LIGHTS WITHIN REACH,BED IN LOCK POSITION WILL ENDORSE TO AM RN FOR BOBBY.ALERT, ORIENTEDX3.
--- NOTE | 2018-02-21 07:15 | NUR ---
MS RN OPENING NOTE RECEIVED PATIENT IN BED. ALERT ORIENTED X 4, ON ROOM AIR. TOLERATING WELL. IN NO APPARENT DISTRESS OR DISCOMFORT AT THIS TIME. RESPIRATIONS EVEN AND UNLABORED. PATIENT IS ABLE TO VERBALIZE NEEDS FULLY. ABLE TO AMBULATE WITH ASSISTIVE DEVICE. PATIENT IS CONTINENT. LEFT HAND 22G, IVC, PATENT AND INTACT. KEPT CLEAN AND COMFORTABLE. PAIN CONTROLLED. SAFETY MEASURES IN PLACE, BED IN LOW LOCKED POSITION, SIDE RAILS UP X2, CALL LIGHT WITHIN EASY REACH. WILL CONTINUE TO MONITOR.
[2018-02-21 08:00] VITALS: BP 144/82
[2018-02-21] MEDS: DOCUSATE SODIUM 100 MG CAPSULE PO SCH ×2 (09:08→17:42)
[2018-02-21] MEDS ORDERED: SENN-167 PO (15:35)
[2018-02-21] MEDS ORDERED: RIVA10TA PO (15:35)
[2018-02-21] MEDS ORDERED: HYDR-3972 PO (15:35)
[2018-02-21 16:00] VITALS: BP 138/57
[2018-02-21] MEDS: RIVAROXABAN 10 MG TABLET PO SCH (17:42)
--- NOTE | 2018-02-21 18:00 | NUR ---
MS COMPUTER INSTALLER NOTE RECEIVED ORDER FOR DISCHARGE. PATIENT IS TO BE TRANSFERRED TO [facility]. IS MEDICALLY CLEARED BY THE DOCTOR. IN STABLE CONDITION. VITAL SIGNS ARE STABLE. ALERT ORIENTED X4. IN NO DISTRESS AT THIS TIME. DISCHARGE PAPERWORK PREPARED AND SIGNED. DC INSTRUCTIONS GIVEN TO THE PATIENT, EDUCATIONAL MATERIAL PROVIDED. BELONGINGS LIST CHECKED AND ACCOUNTED FOR. ALL DUE MEDICATIONS GIVEN. PATIENT IN AGREEMENT WITH DISCHARGE. IVC REMOVED TIP INTACT, ID BAND REMOVED. PATIENT LEFT THE UNIT VIA AMBULANCE AT 1800.
== END 2018-02-21 18:21 | DRG 467 ==
LOC: DS 05:15 → MED 05:20
PROVIDERS: ADMIT Specialist; ATTEND Specialist
DX: Z47.32 Aftercare following explantation of hip joint prosthesis (principal); E44.1 Mild protein-calorie malnutrition; I10 Essential (primary) hypertension; E78.5 Hyperlipidemia, unspecified; D50.9 Iron deficiency anemia, unspecified; I25.10 Atherosclerotic heart disease of native coronary artery without angina pectoris; K21.9 Gastro-esophageal reflux disease without esophagitis; M85.80 Other specified disorders of bone density and structure, unspecified site; Z88.0 Allergy status to penicillin; I70.90 Unspecified atherosclerosis; G47.00 Insomnia, unspecified; Z68.30 Body mass index [BMI] 30.0-30.9, adult
CPT/HCPCS: 36415; 80048-TC; 80053-TC; 80061-TC; 83735-TC; 84100-TC; 85025-TC; 86850-TC; 86921-TC; 87070-TC; 87081-TC; 87186-TC; 97110-TC; 97116-TC; 97530-TC; A4216; A4217; J0690; J1170; J1956; J2270; J2405; J3490; J7060; J7120; Q0163; Z7610